=== PATIENT | female | born 1960 | race Caucasian/White ===

== ENCOUNTER 2021-05-29 20:31 | Emergency (ER) | payer OTHER ==
--- OUTSIDE RECORDS SUMMARY | 2021-05-29 20:36 | XMS REPORT | Continuity of Care Document ---
:1960 Author Organization [facility] t Address [address] [place] [address] Care Team Providers Name Role Phone Pcp, Does Not Have A Primary Care Physician Nurse, Db Urgent Care Attending Clinician Unavailable Maritza PANIAGUA Attending Clinician MARITZA Attending Clinician Unavailable Doctor Unassigned, Name Attending Clinician Unavailable Ayo FONSECA Attending Clinician Chelita Thakur MD Attending Clinician Francesco FONSECA Attending Clinician Jacques Corea MD Attending Clinician Felipe FONSECA, Vero Hall Attending Clinician [phone] Provider Attending Clinician Unavailable Tran_A Attending Clinician Unavailable FIDELINA RIVERA Attending Clinician Unavailable STEPAN Attending Clinician Unavailable MEGAN Admitting Clinician Unavailable Tran_A Admitting Clinician Unavailable ALMA MIXON Admitting Clinician Unavailable ZAK Admitting Clinician Unavailable STEPAN Admitting Clinician Unavailable Payers Payer Name Policy Type Policy Number Effective Date Expiration Date S ource Problems Condition Condition Condition Status Onset Resolution Last Treating Co mments Source Name Details Category Date Date Treatment Clinician Date Pneumonia Pneumonia Disease Active 2020-02 Met [facility]odi of left of left 2-14 st lower lobe lower lobe 00:00: Ho spita due to due to 00 l infectious infectious organism organism Suspected Suspected Disease Active 2020-02 Met hodi COVID-19 COVID-[address] 2-[address] virus virus 00:00: Hospita infection infection 00 l Close Close Disease Active 2020-02 Methodi exposure exposure 2-14 st to to 00:00: Hospita COVID-19 COVID-19 00 l virus virus Diarrhea Diarrhea Disease Active 2020-02 Metho di 2-14 st 00:00: Hospita 00 l Dehydratio Dehydratio Disease Active 2020-02 M ethodi n n 2 st 00:00: Hospita 00 l TIA TIA Disease Active Methodi (transient (transient 03-04 st ischemic ischemic 00:00: Hospit a attack) attack) 00 l Hypertensi Hypertensi Disease Active M ethodi on on st Hospita l CHF CHF Disease Active Methodi (congestiv (congestiv st e heart e heart Hospita failure) failure) l Allergies, Adverse Reactions, Alerts Allergy Allergy Status Severity Reaction(s) Onset Inactive Treating Comm ents Source Name Type Date Date Clinician Penicill DA Active U 2019-02 [facility] [place] 00:00: Health 00 are [place] iodine DA Active U 2019-02 [facility] [place] 00:00: Health 00 are [place] Penicill DA Active U UNKNOWN 2019-02 [facility] [place] 00:00: Health 00 are [place] iodine DA Active U UNKNOWN 2019-02 [facility] [place] 00:00: Health 00 are [place] Iodine Propensi Active Methodi ty to 10-27 adverse 00:00: Hospita reaction 00 l s to drug Penicill Propensi Active Method i ins ty to 10-27 adverse 00:00: Hospita reaction 00 l s to drug Sulfa Propensi Active Methodi (Sulfona ty to 10-27 st mide adverse 00:00: Hospita Antibiot reaction 00 l ics) s to drug Tomato Drug Active Hives Univers Allergy 04-01 ity of 00:00: [address] TOMATO DRUG Active Anaphylaxis Unive rs INGREDI 2-20 ity of 00:00: [place] [facility] Sulfa Propensi Active Anaphylaxis 2017-0 Uni vers (Sulfona ty to 2-26 ity of mide adverse 00:00: [place] Antibiot reaction 00 Medica l ics) s Branch DYE DRUG Active Anaphylaxis 2017-0 Unive rs INGREDI 2-26 ity of 00:00: [place] 00 [facility] PENICILL DRUG Active Anaphylaxis 2017- Uni vers IN INGREDI 2-26 ity of 00:00: [place] 00 [facility] SULFA Drug Active Anaphylaxis 2018-0 Unive rs (SULFONA Class 2-26 ity of MIDE 00:00: [place] ANTIBIOT 00 Medical ICS) Branch Dye Propensi Active Anaphylaxis 2018- CAT SCAN U nivers ty to 2- DYE ity of adverse 00:00: [place] reaction 00 Medical s Branch Penicill Propensi Active Anaphylaxis 2018-0 U nivers in ty to 2 ity of adverse 00:00: [place] reaction 00 Medical s Branch Iodine Propensi Active Anaphylaxis 2017- Met hodi And ty to st Iodide adverse 00:00: Hospita Containi reaction 00 l ng s to Products drug Family History Family Member Diagnosis Comments Start Date Stop Date Source Natural mother Colon cancer [facility] Natural father [facility] Social History Social Habit Start Date Stop Date Quantity Comments Source Exposure to Not sure University SARS-CoV-2 (event) [facility] History of tobacco Cigarette Smoker [facility] use Hospital Alcohol intake 2018-10-28 2018-10-28 Current [facility] 00:00:00 00:00:00 non-drinker of Hospital alcohol (finding) Cigarettes smoked 2017-03-04 2017-03-[address] current (pack per 00:00:00 00:00:00 Hospita l day) - Reported Tobacco use and 2017-03-04 2017-03-04 Smokeless [facility] exposure 00:00:00 00:00:00 tobacco non-user Hospital Tobacco Comment 2017-03-04 2017-03-04 smokes off and Metho dist 00:00:00 00:00:00 on Hospital Sex Assigned At [birth year] Universit y of 00:00:00 00:00:00 [facility] Smoking Status Start Date Stop Date Source Unknown if ever smoked Universit y of [facility] Occasional tobacco smoker 2017-03-04 00:00:00 [facility] Medications Ordered Filled Start Stop Current Ordering Indication Dosage Frequency Signature Comments Components Source Medication Medication Date Date Medication? Clinician (SIG) Name Name albuterol 2020-02- No 2{puff} Q6H Inhale 2 Methodi (PROAIR 2-20 01-[address] HFA) 90 00:00: 05:59 every 6 Hospit a mcg/actuati 00 :00 (six) l on inhaler hours as needed for shortness of breath for up to 30 days. methylPREDN 2020-02 No follow Met hodi ISolone 2-20 12-[address] (Medrol, 00:00: 05:59 directions Pierre Sarkar,) 4 mg 00 :00 l tablet ALPRAZolam 2018-0 Yes 2mg Q.5D Take 2 mg Me thodi (XANAX) 2 9-[address] MG tablet 00:00: (two) Hospita 00 times a l day. tiZANidine 2019-0 Yes 4mg [id number] Take 4 mg Methodi (ZANAFLEX) 9-09 [id number] by mouth 3 [address] 4 MG tablet 00:00: 3D (three) Hos sofiya 00 times a l day. traMADol 2019-0 Yes 50mg Q.[id number] Take 50 mg Methodi (ULTRAM) 50 8-26 [id number] by mouth 3 [address] mg tablet 00:00: 3D (three) Hospi ta 00 times a l day as needed. dextroamphe 2019-0 Yes 1{tbl} QD Take 1 Me thodi tamine-amph 8-[address] etamine 00:00: mouth Hospita (ADDERALL) 00 daily. l 30 mg tablet LATUDA 80 2019-0 Yes 80mg QD Take 80 mg Me thodi mg tablet 8-[address] 00:00: daily. Hospita 00 l methylPREDN 2019-0 Yes [id number] Take by Univers ISolone 4 2-20 mouth ity of mg tablets 00:00: SEE-INSTRU [place] 00 CTIONS. Medical follow Branch package directions methylPREDN 2019-0 Yes [id number] Take by Univers ISolone 4 2-20 mouth ity of mg tablets 00:00: SEE-INSTRU [place] 00 CTIONS. Medical follow Branch package directions lisinopril 2017- Yes 10mg QD Take 1 Metho di (PRINIVIL,Z 1-27 tablet (10 st ESTRIL) 10 00:00: mg total) Ho spita mg tablet 00 by mouth l daily for 30 days. Immunizations Ordered Filled Immunization Date Status Comments [facility] e Immunization Name Name Remdesivir 2021-01-28 Completed [facility] 00:00:00 [facility] Remdesivir 2021-01-27 Completed [facility] 00:00:00 [facility] Remdesivir 2021-01-26 Completed [facility] 00:00:00 [facility] Remdesivir 2021-01-25 Completed [facility] 00:00:00 [facility] Remdesivir 2021-01-24 Completed [facility] 00:00:00 [facility] Tdap 2018-06-26 Completed [facility] 00:00:00 [facility] Influenza Virus 2017-03-07 Completed Universit y of Vaccine 00:00:00 [facility] Pneumococcal 13 2017-03-07 Completed Universit y of Conjugate, PCV13 00:00:00 [facility] dical (Prevnar 13) Normal Influenza Virus 2017-03-07 Completed Universit y of Vaccine 00:00:00 [facility] Pneumococcal 13 2017-03-07 Completed Universit y of Conjugate, PCV13 00:00:00 [facility] dical (Prevnar 13) Normal FLUCELVAX QUAD PF 2017-03-[address] 00:00:00 [facility] Pneumococcal 2017-03-07 Completed [facility] Conjugate 13-Valent 00:00:00 Hospi lora Vital Signs Vital Name Observation Time Observation Value Comments Source Systolic blood 2021-05-30 00:56:00 134 mm[Hg] Univer sity of pressure [facility] Diastolic blood 2021-05-30 00:56:00 84 mm[Hg] Unive [facility] Heart rate 2021-05-30 00:56:00 67 /min General acute hospital Body temperature 2021-05-30 00:56:00 36.22 Faith [facility] Respiratory rate 2021-05-30 00:56:00 16 /min [facility] Body height 2021-05-30 00:56:00 167.6 cm General acute hospital Body weight 2021-05-30 00:56:00 144.244 kg General acute hospital BMI 2021-05-30 00:56:00 51.33 kg/m2 General acute hospital Oxygen saturation in 2021-05-30 00:56:00 98 /min [facility] Arterial blood by [facility] Pulse oximetry Branch Systolic blood 2021-01-29 17:22:59 134 mm[Hg] [facility] pressure Diastolic blood 2021-01-29 17:22:59 77 mm[Hg] [facility] pressure Heart rate 2021-01-29 17:22:59 72 /min [facility] Body temperature 2021-01-29 17:22:59 36.5 Faith [facility] Respiratory rate 2021-01-29 17:22:59 18 /min [facility] Oxygen saturation in 2021-01-29 17:22:59 93 /min [facility] Arterial blood by Pulse oximetry Body height 2021-01-23 15:18:00 167.6 cm [facility] Body weight 2021-01-23 15:18:00 147.419 kg [facility] BMI 2021-01-23 15:18:00 52.46 kg/m2 [facility] Procedures Procedure Date / Time Performing Clinician Source Performed DURABLE MEDICAL EQUIPMENT 2021-01-29 17:25:38 Allison Wang [facility] Abdelmoneim E.S BASIC METABOLIC PANEL 2021-01-29 11:39:00 Allison Wang [facility] Abdelmoneim E.S CBC WITH PLATELET AND 2021-01-29 11:39:00 Allison Wang [facility] DIFFERENTIAL Abdelmoneim E.S MAGNESIUM LEVEL 2021-01-29 11:39:00 Allison Wang spital Abdelmoneim E.S PHOSPHORUS LEVEL 2021-01-29 11:39:00 Allison Wang ospital Abdelmoneim E.S ESTIMATED GFR 2021-01-29 11:39:00 Allison Wang spital Abdelmoneim E.S MANUAL DIFFERENTIAL 2021-01-29 [facility]:39[facility] C-REACTIVE PROTEIN 2021-01-27 15:11:00 Karl Arellano [facility] XR CHEST 1 VW PORTABLE 2021-01-26 13:30:45 Francesco [facility] CBC HEMOGRAM 2021-01-26 11:19:00 Armin Maya spital COMPREHENSIVE METABOLIC 2021-01-26 11:19:00 Francesco [facility] PANEL MAGNESIUM LEVEL 2021-01-26 11:19:00 Hernan Mayahan [facility] spital ESTIMATED GFR 2021-01-26 11:19:00 Francesco [facility] Ho spital C-REACTIVE PROTEIN 2021-01-26 11:19:00 Eileen [facility] US DUPLEX VENOUS LOWER 2021-01-26 03:53:00 Francesco [facility] EXTREMITY BILATERAL COVID-19 ANTI-SPIKE IGG 2021-01-25 11:47:00 Gorge Arteaga [facility] ANTIBODY TITER Donnie C-REACTIVE PROTEIN 2021-01-25 11:47:00 Eileen [facility] COVID-19 SEROLOGY PATIENT 2021-01-25 11:47:00 Gorge Arteaga [facility] SURVEILLANCE Donnie CBC HEMOGRAM 2021-01-25 11:47:00 Armin Maya spital COMPREHENSIVE METABOLIC 2021-01-25 11:47:00 Francesco [facility] PANEL MAGNESIUM LEVEL 2021-01-25 11:47:00 Armin Maya spital ESTIMATED GFR 2021-01-25 11:47:00 Hernan Mayahan [facility] spital CT CHEST WO CONTRAST 2021-01-24 22:52:45 Karl Arellano [facility] D-DIMER 2021-01-24 19:54:00 [facility] INTERLE[facility] 6 2021-01-24 15:36:00 Armin Maya spital PROCALCITONIN 2021-01-24 15:36:00 Armin Maya spital CREATINE KINASE, TOTAL 2021-01-24 15:36:00 [facility] THYROID STIMULATING 2021-01-24 15:36:00 [facility] HORMONE C-REACTIVE PROTEIN 2021-01-24 15:36:00 [facility] HEMOGLOBIN A1C 2021-01-24 15:36:00 [facility] Ho spital HC COMPLETE BLD COUNT 2021-01-24 12:34:00 [facility] W/AUTO DIFF [place] BASIC METABOLIC PANEL 2021-01-24 12:34:00 [facility] ESTIMATED GFR 2021-01-24 12:34:00 [facility] TROPONIN T 2021-01-23 21:46:00 [facility] TROPONIN T 2021-01-23 19:35:00 [facility] LACTIC ACID LEVEL, SEPSIS 2021-01-23 16:50:00 [facility] Xochitl [facility] - NOW AND REPEAT 2X EVERY 3 HOURS BLOOD CULTURE, AEROBIC & 2021-01-23 16:49:00 [facility] Xochitl [facility] ANAEROBIC XR CHEST 1 VW PORTABLE 2021-01-23 15:52:57 [facility] COMPREHENSIVE METABOLIC 2021-01-23 15:50:00 [facility] PANEL HC COMPLETE BLD COUNT 2021-01-23 15:50:00 [facility] W/AUTO DIFF TROPONIN T 2021-01-23 15:50:00 [facility] B NATRIURETIC PEPTIDE 2021-01-23 15:50:00 [facility] ESTIMATED GFR 2021-01-23 15:50:00 Xochitl Rollins Ho spital RESPIRATORY PATHOGEN 2021-01-23 15:47:00 [facility] PANEL WITH COVID-19 RT-PCR ECG 12-LEAD 2021-01-23 15:27:55 Xochitl Rollins Ho spital ECG ED PRELIMINARY 2021-01-23 15:21:22 [facility] INTERPRETATION Plan of Care Planned Activity Planned Date Details Comments Source Future Scheduled 2021-03-22 COVID-19 VACCINE (1) Met [facility] Test 11:44:08 [code = COVID-19 VACCINE (1)] Future Scheduled 2021-03-22 Hepatitis C screening [facility] Test 11:44:08 (procedure) [code = 171250328] Future Scheduled 2021-03-22 Screening for [facility] Test 11:44:08 malignant neoplasm of cervix (procedure) [code = 708257581] Future Scheduled 2021-03-22 BREAST CANCER [facility] Test 11:44:08 SCREENING [code = BREAST CANCER SCREENING] Future Scheduled 2021-03-22 COLONOSCOPY SCREENING [facility] Test 11:44:08 [code = COLONOSCOPY SCREENING] Future Scheduled 2021-03-22 SHINGLES VACCINES Method [facility] Test 11:44:08 (#1) [code = SHINGLES VACCINES (#1)] Future Scheduled 2021-03-22 INFLUENZA VACCINE Method [facility] Test 11:44:08 [code = INFLUENZA VACCINE] Procedure 2021-05-30 ASSIGNMENT OF [facility] 00:49:34 [facility] Encounters Start End Encounter Admission Attending Care Care Encounter Source Date/Time Date/Time Type Type Clinicians Facility Department ID 2019-11-27 Inpatient HCATB ELISSA [id number] [facility] 09:11:00 [id number] [facility] are [place] 2021-05-29 2021-05-29 Nurse Nurse, [facility] [id number] Univers 20:30:00 20:50:00 [facility] [id number] [facility] [id number] Matthieu as MOON?BLEA [id number] [address] MEDICAL OFFICE BUILDING 2021-05-29 2021-05-29 Outpatient R [facility] [id number] Univers 20:30:00 20:30:00 [id number] [facility] 2021-05-29 2021-05-29 [facility] [id number] Univers 20:30:00 20:30:00 CAROLYN [facility] 2021-05-29 2021-05-29 Orders Doctor SABINE [id number] Univers 00:00:00 00:00:00 Only Unassigned, [place] [id number] [facility] 4.2.7.2.686 Matthieu as [id number] [place] [id number] Branch 2021-01-23 2021-01-29 Hospital Xochitl Rollins [id number] Methodi 09:20:00 16:10:00 Encounter Gaagn Thakur Amod [id number] Armin Maya 3.430.2.7 Hospita NahomyOmar Jacques .[id number] l Allison Wang8 2021-01-24 2021-01-24 Documentat Provider, 1.2.840.1 [id number] Methodi 00:00:00 00:00:00 ion Unknown [id number] 3.430.2.7 Hospit a .3.622517 l .8 2020-04-14 2020-04-14 Outpatient Tran_A VFP VFP [id number] [facility] 12:28:00 12:28:00 [id number] Family Practic e 2019-06-12 2019-06-15 Inpatient [facility] 19:51:00 18:00:00 [facility] 2018-06-29 2018-06-29 Emergency E [facility]NE MHNE 7502 [facility] 17:37:00 17:37:00 2018-06-22 2018-06-22 Emergency E MHNE MHNE 7501 NE 20:55:00 20:55:00 Results Test Description Test Time Test Comments Results Result Comments Source Home O2 Setup 2021-02-06 21:37:18 Test Item Value Reference Range Interpretation Comme nts SUPPLIER NAME (test code = 6415) [facility] SUPPLIER PHONE (test code = 6416) [phone] ORDER STATUS (test code = 6417) Delivery Successful DELIVERY NOTE (test code = 6419) REQUESTED DELIVEY DATE (test code = 6420) 01/29/2021 ITEM DESCRIPTION (test code = 6423) No Conserving Device Qty: 1 ACTUAL DELIVERY DATE (test code = 6422) 01/29/2021 [facility] [id number] 03:36:48 Test Item Value Reference Range Interpretation Comments Ventricular rate (test code = 253) Atrial rate (test code = 255) MS interval (test code = 266) QRSD interval (test code = 260) QT interval (test code = 264) QTC interval (test code = 265) P axis 1 (test code = 267) QRS axis 1 (test code = 268) T wave axis (test code = 270) EKG impression (test Normal sinus code = 273) rhythm-Nonspecific T wave abnormality-Abnormal ECG-In automated comparison with ECG of 03-MAR-2017 12:07,-No significant change was found- [facility] [id number] 01:32:00 Test Item Value Reference Range Interpretation Comments COVID 19 INHOUSE AG NEGATIVE NEGATIVE NEGATIV E RESULTS SHOULD (test code = BE TREATED P RESUMPTIVE [id number]) ANDCONFIRMED WT IH A MOLECULAR ASSAY , IF NECESSARY FOR PATIENTMANAGEME NT. NEGATIVE RESULT S DO NOT RULE OUT COVID- 19 ANDSHOULD NOT B E USED THE SOLE BASIS FOR TREATMENT ORPAT IENT MANAGEMENT DECI SIONS, INCLUDING INFEC TION CONTROLDECISION S. NEGATIVE RESULT S SHOULD BE CONSIDERED I N THECONTEXT OF A PATIENT'S RECENT EXPOSURE S, HISTORY AND THEPRESENCE OF CLINICAL SIGNS AND SYMPTOMS CONSIS TENT WITHCOVID-19. - CT CHEST W/O [id number] 11:21:00 [facility] : 1960 Sex: FPatient Name: MATEO NUNEZ Unit No: [id number] EXAMS: CPT: [id number] CT CHEST W/O CONTRAST [address]32 CT CHEST, ABDOMEN AND PELVIS WITHOUT CONTRAST: INDICATIONS:Possible aspiration. Abdominal pain. COMPARISON: None available Axial CT imaging of the chest,abdomen and pelvis without IV contrast. Coronal and sagittal reformats recons tructed. Sensitivity of the exam is limited without contrast. Oral contrast One or more of the following dose reduction techniques were used: Automated exposure control, adjustment of the mA and or Kv according to patient size, and / or utilization of iterative reconstruction technique. Total DPL: 1637.17mGy*cm FINDINGS: The visualized central airway is unremarkable. No hilar or mediastinal lymphadenopathy. Cardiac size is normal. No coronary calcifications. No pericardial effusions. Some dependent ate lectasis. No pleural effusion, masses, pneumothorax or consolidation. The thoracic aortais of normal caliber. Below the hemidiaphragms: The unenhanced liver, pancreas, spleen, adrenals are unremarkable. Ossified granuloma in the spleen. Gallbladderis surgically absent. Kidneys are unremarkable. Distal ureter and bladder are unremarkable. No small or large bowel obstruction. A normal appendix. No enlarged retroperitoneal node. The abdominal aorta is normal caliber. Remaining pelvic structures negative. No free fluid or free air. Multilevel degenerative the thoracolumbar spine. IMPRESSION: No acute abnormality within the chest, abdomen or pelvis at 1121 Reported and signed by: Steven Sanchez MD Name: MATEO NUNEZ [facility] [place] Phys: [id number] - Gerardo Fleming MD [address] [facility] : 1960 Age: 59 Sex: F [place] Loc: T.ERS Exam Date: 11/27/2019 Status: REG ER PH: FAX: PAGE 1 Signed Report (CONTINUED) Patient Name: MATEO NUNEZ Unit No: [id number] EXAMS: CPT: [id number] CT CHEST W/O CONTRAST [id number] <Continued> CC: Gerardo Fleming MD Technologist:Sabine Radford CTDI: 23.95 DLP: 1637.17Trscr Dt/Tm: 11/27/2019 (1121) by:[email or web address] Orig Print D/T: S: 11/27/2019 (1124) BATCH NO: N/A Name: MATEO NUNEZ [facility] [place] Phys: Gerardo Gonzalez MD [address] [facility] 1960 Age: 59 Sex: F Dirk Monae Loc: T.ERS Exam Date: 11/27/2019 Status: REG ER PH: FAX: PAGE 2 Signed Report- CT ABD PELVIS W/O [id number] 11:21:00 [facility] : 1960 Sex: FPatient Name: MATEO NUNEZ Unit No: [id number] EXAMS: CPT: [id number] CT ABD PELVIS W/O CONT 65743 CT CHEST, ABDOMEN AND PELVIS WITHOUT CONTRAST: INDICATIONS:Possible aspiration. Abdominal pain. COMPARISON: None available Axial CT imaging of the chest,abdomen and pelvis without IV contrast. Coronal and sagittal reformats recons tructed. Sensitivity of the exam is limited without contrast. Oral contrast One or more of the following dose reduction techniques were used: Automated exposure control, adjustment of the mA and or Kv according to patient size, and / or utilization of iterative reconstruction technique. Total DPL: 1637.17mGy*cm FINDINGS: The visualized central airway is unremarkable. No hilar or mediastinal lymphadenopathy. Cardiac size is normal. No coronary calcifications. No pericardial effusions. Some dependent ate lectasis. No pleural effusion, masses, pneumothorax or consolidation. The thoracic aortais of normal caliber. Below the hemidiaphragms: The unenhanced liver, pancreas, spleen, adrenals are unremarkable. Ossified granuloma in the spleen. Gallbladderis surgically absent. Kidneys are unremarkable. Distal ureter and bladder are unremarkable. No small or large bowel obstruction. A normal appendix. No enlarged retroperitoneal node. The abdominal aorta is normal caliber. Remaining pelvic structures negative. No free fluid or free air. Multilevel degenerative the thoracolumbar spine. IMPRESSION: No acute abnormality within the chest, abdomen or pelvis at 1121 Reported and signed by: Steven Sanchez MD Name: MATEO NUNEZ [place] Phys: Gerardo Gonzalez MD [address] [facility] : 1960 Age: 59 [facility]: [facility] [id number] Loc: T.ERS Exam Date: 11/27/2019 Status: REG ER PH: FAX: PAGE 1 Signed Report (CONTINUED) Patient Name: MATEO NUNEZ Unit No: [id number] EXAMS: CPT: [id number] CT ABD PELVIS W/O CONT 58147 <Continued> CC: Gerardo Fleming MD Technologist:Sabine Radford CTDI: 23.95 DLP: 1637.17Trscr Dt/Tm: 11/27/2019 (1121) by:[email or web address] Orig Print D/T: S: 11/27/2019 (1124) BATCH NO: N/A Name: MATEO NUNEZ [facility] [place] Phys: KIMULacieGerardo Gonzalez MD [address] [facility] : 1960 Age: 59 Sex: F Dirk Monae Loc: T.ERS Exam Date: 11/27/2019 Status: REG ER PH: FAX: PAGE 2 Signed Report- CT C-SPINE W/O [id number] 11:08:00 [facility] : 1960 Sex: FPatient Name: MATEO NUNEZ Unit No: [id number] EXAMS: CPT: [id number] CT C-SPINE W/O CONT 42742 CT CERVICAL SPINE: HISTORY: vomiting fall COMPARISON: None available. FINDINGS: No acute fracture or dislocation is seen. There is fusion of the left see 2-3 facet joint. The overall alignment of the cervical spine is normal. Changes of cervical spondylosis are present at C4-5 and C5-6. Facet arthrosis is noted at C3-4, C5-6, C6-7 and C7-T1. Mild uncovertebral osteoarthritis is present at C5-6. No lytic or blastic lesion is noted. Without contrast in the thecal sac a CT scan of the cervical spine is limited for the diagnosis of disc disease. IMPRESSION: No acute traumatic abnormality. Mild cervical spondylosis at C4-5 and C5-6. Facet arthrosis at C3-4 through C7-T1 and uncovertebral arthrosis at C5-6. DLP: 506.9 mGy*cm One or more of the following dose reduction techniques were used: Automated exposure control, adjustment of the SMA and/or KV according to the patient size, and/or utilization of degenerative reconstruction technique. at 1108 Reported and signed by: Gorge Shepard MD CC: Gerardo Fleming MD Technologist: Sabine Radford CTDI: 20.58 DLP: 1818.8 Trscr Dt/Tm: 11/27/2019 (1108) by:[email or web address] Orig Print D/T: S: 11/27/2019 (1111) BATCH NO: N/A Name: MATEO NUNEZ [facility] [place] Phys: [id number] - Gerardo Fleming MD [address] : 1960 Age: 59 Sex: F [place] Loc: T.ERS Exam Date: 11/27/2019 Status: REG ER PH: FAX: PAGE 1 Signed Report- CT HEAD/BRAIN W/O [id number] 11:02:00[facility] : 1960 Sex: FPatient Name: MATEO NUNEZ Unit No: [id number] EXAMS: CPT: [id number] CT HEAD/BRAIN W/O CONT [id number] CT SCAN OF THE HEAD WITHOUT CONTRAST: HISTORY: vomiting COMPARISON: None available. FINDINGS: The ventricles are normal in size and shape. No evidence of an intra- axial or extra-axial mass is seen and no shift of the midline structures is present. No abnormal focus of increased or decreased attenuation is present in the lowe or white matter, brain stem, or posterior fossa. No intra-axial or extra-axialmass, hemorrhage or other fluid collection is noted. The visualized paranasal sinuses and mastoid air cells are clear. IMPRESSION: Normal CT head without contrast. DLP: 805.01 mGy*cm One or more of the following dose reductiontechniques were used: Automated exposure control, adjustment of the SMA and/or KV according to the patient size, and/or utilization of iterative reconstruction technique. at 1102 Reported and signed by: Gorge Shepard MD CC: Gerardo Fleming MD Technolog ist: Sabine Radford CTDI: 40.74 DLP: 1818.8 TrscrDt/Tm: 11/27/2019 (1102) by:[email or web address] Orig Print D/T: S: 11/27/2019 (1105) BATCH NO: N/A Name: MATEO NUNEZ [facility] [place] Phys: [id number] - Gerardo [facility] [address] [facility] 1960 Age: 59 Sex: F [place] Loc: T.ERS Exam Date: 11/27/2019 Status: REG ER PH: FAX: PAGE 1 Signed ReportBASIC METABOLIC [id number] 10:51:00 Test Item Value Reference Range Interpretation Comments SODIUM (test code 140 mmol/L 136-145 N = NA) POTASSIUM (test 4.0 MMOL/L 3.6-5.2 N code = K) CHLORIDE (test 109 MMOL/L 98-110 N code = CL) CARBON DIOXIDE 24 mEq/L 24-32 N (test code = CO2) GLUCOSE (test code 123 mg/dL 70-110 H = GLU) BLOOD UREA 15 mg/dL 7-18 N NITROGEN (test code = BUN) GLOMERULAR >=60 max >60 The estimated FILTRATION RATE estimate glomerular (test code = GFR) filtration rate is computed usingpatient ra ce, age (>18), sex, and serum creatinin e. If anyof the neede d data elements a re missing the Laboratory kvng ot compute an estimation of t he glomerular filtration rate . CREATININE (test 0.53 mg/dL 0.60-1.30 L code = CREAT) CALCIUM (test code 8.9 mg/dL 8.6-10.4 N = CA) COMPREHENSIVE METABOLIC [id number] 10:51:00 Test Item Value Reference Range Interpretation Comments TOTAL PROTEIN (test 6.8 g/dL 6.0-8.3 N code = PROT) ALBUMIN (test code = 3.8 g/dL 3.2-5.5 N ALB) BILIRUBIN TOTAL 0.5 mg/dL 0.2-1.0 N K-qavern-u-b enzoquinone (test code = BILT) imine (NA PQI), a metabolite ofacetaminophen (paracetamol), may generate errone ously lowresults in s amples for patients th at have taken toxic dos esof acetaminophen (paracetamol). SGOT/AST (test code 17 UNITS/L 10-42 N = AST) SGPT/ALT (test code 15 UNITS/L 10-40 N = ALT) ALKALINE PHOSPHATASE 56 UNITS/L 34-104 N (test code = ALKP) LIVER FUNCTION [id number] 10:51:00 Test Item Value Reference Range Interpretation Comments BILIRUBIN DIRECT 0.1 mg/dL 0.0-0.2 N N-acetyl-p- benzoquinone (test code = BILD) imine (NA PQI), a metabolite ofacetaminophen (paracetamol), may generate errone ously lowresults in s amples for patients that h ave taken toxic dosesof acetaminophen (paracetamol). BILIRUBIN INDIRECT 0.4 mg/dL (test code = BILIND) [id number] 10:51:00 Test Item Value Reference Range Interpretation Comments MAGNESIUM (test code = MAG) 2.2 mg/dL 1.7-2.8 N [id number] 10:51:00 Test Item Value Reference Range Interpretation Comments ACETAMINOPHEN (test code = ACET) < 10.0 ug/mL 10.0-25.0 L [id number] 10:51:00 Test Item Value Reference Range Interpretation Comments SALICYLATE (test code = DU) < 4.0 mg/dL 0.0-30.0 N [id number] 10:51:00 Test Item Value Reference Range Interpretation Comments ALCOHOL (test code = < 5.0 mg/dl 0.0-80.0 N ALC) ~~~~~~~~~~~~~~~ ~~~~~~~ ~~~~~~~~~~~~~~~ ~~~~~~~ ~~~~~~ RESU LTS ARE TO BE USED FOR MEDICAL PURPOSES ONLY.F OR LEGAL PURPOSES THE SPECIMEN MUST B E COLLECTED BY A CHAINOF CUSTODY. LEGAL TESTING IS NOT PERFORME D BY THIS FACILITY. ~~~~~~~~~~~~~~~ ~~~~~~~ ~~~~~~~~~~~~~~~ ~~~~~~~ ~~~~~~ [id number] 10:43:00 Test Item Value Reference Range Interpretation Comments LITHIUM (test code = LITH) 0.2 mmol/L 0.5-1.3 L PROTHROMBIN [id number] 10:40:00 Test Item Value Reference Range Interpretation Comments PROTHROMBIN TIME 12.4 SECONDS 9.5-12.9 N PATIENT (test code = PTP) INTERNATIONAL NORMAL 1.0 0.85-1.15 N The INR is to be used RATIO (test code = only for monitoring INR) ORAL ANTICOAGULANTTH ERAPY. Indicati on INR Value1. Prophylaxis/yolanda atment of: Venous Thrombosis, Pul monary Embolism 2.0 - 3.02. Preventi on of systemic emboli sm from: Tiss ue heart valves 2.0 - 3.0 Acute myocardial infa rction (to present systemic emboli sm)* 2.0 - 3.0 Valvular heart disease 2.0 - 3.0 Atrial fibrillation 2.0 - 3.03. Used Building [employer] Yard Worker al prosthetic valv es (high risk) 2.5 - 3.5 * If oral anticoagulant t herapy is elected to preventrecurren t myocardial infa rction, an INR of 2.5-3 .5 isrecommended, consistent with Food and Drug Administrationr ecommen dations. THROMBOPLASTIN TIME [id number] 10:40:00 Test Item Value Reference Range Interpretation Comments THROMBOPLASTIN TIME PARTIAL (test 32 SECONDS 25.1-36.5 N code = PTT) BASIC METABOLIC [id number] 10:37:00 Test Item Value Reference Range Interpretation Comments SODIUM (test code = NA) 140 mmol/L 136-145 N POTASSIUM (test code = K) 4.0 MMOL/L 3.6-5.2 N CHLORIDE (test code = CL) 109 MMOL/L 98-110 N CARBON DIOXIDE (test code = CO2) 24 mEq/L 24-32 N GLUCOSE (test code = GLU) 123 mg/dL 70-110 H BLOOD UREA NITROGEN (test code = mg/dL 7-18 BUN) GLOMERULAR FILTRATION RATE (test >60 code = GFR) CREATININE (test code = CREAT) mg/dL 0.60-1.30 CALCIUM (test code = CA) 8.9 mg/dL 8.6-10.4 N COMPREHENSIVE METABOLIC [id number] 10:37:00 Test Item Value Reference Range Interpretation Comments TOTAL PROTEIN (test code = PROT) g/dL 6.0-8.3 ALBUMIN (test code = ALB) g/dL 3.2-5.5 BILIRUBIN TOTAL (test code = BILT) mg/dL 0.2-1.0 SGOT/AST (test code = AST) UNITS/L 10-42 SGPT/ALT (test code = ALT) UNITS/L 10-40 ALKALINE PHOSPHATASE (test code = UNITS/L 34-104 ALKP) LIVER FUNCTION [id number] 10:37:00 Test Item Value Reference Range Interpretation Comments BILIRUBIN DIRECT (test code = BILD) mg/dL 0.0-0.2 [id number] 10:37:00 Test Item Value Reference Range Interpretation Comments MAGNESIUM (test code = MAG) mg/dL 1.7-2.8 [id number] 10:37:00 Test Item Value Reference Range Interpretation Comments ACETAMINOPHEN (test code = ACET) ug/mL 10.0-25.0 [id number] 10:37:00 Test Item Value Reference Range Interpretation Comments SALICYLATE (test code = DU) mg/dL 0.0-30.0 [id number] 10:37:00 Test Item Value Reference Range Interpretation Comments ALCOHOL (test code = ALC) mg/dl 0.0-80.0 BASIC METABOLIC [id number] 10:36:00 Test Item Value Reference Range Interpretation Comments SODIUM (test code = NA) mmol/L 136-145 POTASSIUM (test code = K) 4.0 MMOL/L 3.6-5.2 N CHLORIDE (test code = CL) MMOL/L 98-110 CARBON DIOXIDE (test code = CO2) mEq/L 24-32 GLUCOSE (test code = GLU) mg/dL 70-110 BLOOD UREA NITROGEN (test code = mg/dL 7-18 BUN) GLOMERULAR FILTRATION RATE (test >60 code = GFR) CREATININE (test code = CREAT) mg/dL 0.60-1.30 CALCIUM (test code = CA) mg/dL 8.6-10.4 COMPREHENSIVE METABOLIC [id number] 10:36:00 Test Item Value Reference Range Interpretation Comments TOTAL PROTEIN (test code = PROT) g/dL 6.0-8.3 ALBUMIN (test code = ALB) g/dL 3.2-5.5 BILIRUBIN TOTAL (test code = BILT) mg/dL 0.2-1.0 SGOT/AST (test code = AST) UNITS/L 10-42 SGPT/ALT (test code = ALT) UNITS/L 10-40 ALKALINE PHOSPHATASE (test code = UNITS/L 34-104 ALKP) LIVER FUNCTION [id number] 10:36:00 Test Item Value Reference Range Interpretation Comments BILIRUBIN DIRECT (test code = BILD) mg/dL 0.0-0.2 [id number] 10:36:00 Test Item Value Reference Range Interpretation Comments MAGNESIUM (test code = MAG) mg/dL 1.7-2.8 [id number] 10:36:00 Test Item Value Reference Range Interpretation Comments ACETAMINOPHEN (test code = ACET) ug/mL 10.0-25.0 [id number] 10:36:00 Test Item Value Reference Range Interpretation Comments SALICYLATE (test code = DU) mg/dL 0.0-30.0 [id number] 10:36:00 Test Item Value Reference Range Interpretation Comments ALCOHOL (test code = ALC) mg/dl 0.0-80.0 CBC W/AUTO [id number] 10:33:00 Test Item Value Reference Range Interpretation Comments WHITE BLOOD CELL (test code = WBC) 8.47 K/mm3 5.0-12.0 N RED BLOOD CELL (test code = RBC) 4.62 M/mm3 4.20-5.40 N HEMOGLOBIN (test code = HGB) 13.6 G/DL 12.0-16.0 N HEMATOCRIT (test code = HCT) 41.7 % 34.9-44.5 N MEAN CELL VOLUME (test code = MCV) 90 fL 81-99 N MEAN CELL HGB (test code = MCH) 29.4 PGM 27-31 N MEAN CELL HGB CONCENTRATION (test 32.6 G/DL 33-37 L code = MCHC) RED CELL DISTRIBUTION WIDTH (test 12.9 % 11.6-16.2 N code = RDW) PLATELET COUNT (test code = PLT) 257 K/mm3 130-400 N MEAN PLATELET VOLUME (test code = 11.5 fl 7.4-10.4 H MPV) NEUTROPHIL % (test code = NT%) 82.9 % 43-65 H IMMATURE GRANULOCYTE % (test code 0.4 % 0.0-2.0 N = IG%) LYMPHOCYTE % (test code = LY%) 11.8 % 20.5-45.5 L MONOCYTE % (test code = MO%) 4.3 % 5.5-11.7 L EOSINOPHIL % (test code = EO%) 0.4 % 0.9-2.9 L BASOPHIL % (test code = BA%) 0.2 % 0.2-1.0 N NUCLEATED RBC % (test code = 0.0 % 0-1.0 N NRBC%) NEUTROPHIL # (test code = NT#) 7.03 K/mm3 2.2-4.8 H LYMPHOCYTE # (test code = LY#) 1.00 K/mm3 1.3-2.9 L MONOCYTE # (test code = MO#) 0.36 K/mm3 0.3-0.8 N EOSINOPHIL # (test code = EO#) 0.03 K/MM3 0.0-0.2 N BASOPHIL # (test code = BA#) 0.02 K/mm3 0.0-0.1 N DRUGS OF ABUSE SCREEN [id number] 10:24:00 Test Item Value Reference Range Interpretation Comments UR COCAINE (test code = COCAU) NEGATIVE NEGATIVE UR METHAMPHETAMINE (test code = NEGATIVE NEGATIVE METHAMPHU) UR CANABINOIDS (test code = CANU) NEGATIVE NEGATIVE UR AMPHETAMINE (test code = AMPHU) NEGATIVE NEGATIVE UR BARBITURATE (test code = BARBQLU) POSITIVE NEGATIVE A UR BENZODIAZEPINE (test code = NEGATIVE NEGATIVE BENZU) METHADONE (test code = METHDU) NEGATIVE NEGATIVE PROPOXYPHENE SCREEN (test code = NEGATIVE NEGATIVE PROPXSQ) UR OPIATES QUAL (test code = POSITIVE NEGATIVE A OPIAQLU) OXYCODONE (test code = OXYCOD) NEGATIVE NEGATIVE UR TRICYCLICS (test code = TRICYCU) NEGATIVE NEGATIVE UR PHENCYCLIDINE (PCP) (test code = NEGATIVE NEGATIVE PHENCU) UR BUPRENORPHINE QUAL (test code = NEGATIVE NEAGTIVE BUPRESCRT) TROPONIN I [id number] 10:23:00 Test Item Value Reference Range Interpretation Comments TROPONIN I RAPID 0.00 ng/mL 0.00-0.08 N ISTAT (test code = TROPONIN I TROPIRAP) CRITERIA0.00-0. 08 ng/mL - Negative>0.08 n g/mL - Positive The us e of serial sampling and te sting protocol is are commended practice.An simeon vated troponin level alone is often not suffi cient fordiagnosis of myocardial infarction. Tro ponin results obtaine d by different assay s may vary.Evaluation of the extent of myoca rdial damage based on increase of troponin would be valid only if similar methodology is used. UA RFLX MICR CULT IF [id number] 10:16:00 Test Item Value Reference Range Interpretation Comments UA COLOR (test code = COLU) Light-Yellow YELLOW UA APPEARANCE (test code = CLEAR CLEAR APPU) UA GLUCOSE DIPSTICK (test code NEG MG/DL NEGATIVE = DGLUU) UA BILIRUBIN DIPSTICK (test NEG NEGATIVE code = BILU) UA KETONE DIPSTICK (test code 1+ MG/DL NEGATIVE A = KETU) UA SPECIFIC GRAVITY (test code 1.016 1.000-1.030 = SGU) UA BLOOD DIPSTICK (test code = NEG NEGATIVE LINDA) UA PH DIPSTICK (test code = 5.5 4.5-8.5 TIM) UA PROTEIN DIPSTICK (test code NEG MG/DL NEGATIVE = PROU) UA UROBILINOGEN DIPSTICK (test NORMAL EU/dL <=1.0 code = URO) UA NITRITE DIPSTICK (test code NEG NEGATIVE = MINAL) UA LEUKOCYTE ESTERASE DIPSTICK NEG NEGATIVE (test code = LEUU) UA WBC (test code = WBCU) 0-3 /HPF 0-3 UA RBC (test code = RBCU) 0-3 /HPF 0-3 UA BACTERIA (test code = BACU) NONE SEEN /HPF NONE SEEN UA SQUAMOUS CELLS (test code = RARE /HPF NONE-FEW SQU) UA MUCUS (test code = MUCU) RARE /LPF NONE-FEW Indication for culture: Dysuria/FrequencySpecimen Description: BAGGED URINE UA RFLX MICR CULT IF [id number] 10:14:00 Test Item Value Reference Range Interpretation Comments UA COLOR (test code = COLU) Light-Yellow YELLOW UA APPEARANCE (test code = APPU) CLEAR CLEAR UA GLUCOSE DIPSTICK (test code = NEG MG/DL NEGATIVE DGLUU) UA BILIRUBIN DIPSTICK (test code NEG NEGATIVE = BILU) UA KETONE DIPSTICK (test code = 1+ MG/DL NEGATIVE A KETU) UA SPECIFIC GRAVITY (test code = 1.016 1.000-1.030 SGU) UA BLOOD DIPSTICK (test code = NEG NEGATIVE LINDA) UA PH DIPSTICK (test code = TIM) 5.5 4.5-8.5 UA PROTEIN DIPSTICK (test code = NEG MG/DL NEGATIVE PROU) UA UROBILINOGEN DIPSTICK (test NORMAL EU/dL <=1.0 code = URO) UA NITRITE DIPSTICK (test code = NEG NEGATIVE MINAL) UA LEUKOCYTE ESTERASE DIPSTICK NEG NEGATIVE (test code = LEUU) Indication for culture: Dysuria/FrequencySpecimen Description: BAGGED URINE CULTURE, ARLINE [id number] 08:44:00FIRST DRAW = 1 aerobic and 1 anerobic Culture LEFT HANDSpecimen: BloodCollected: 08/29/2018 16:30 Status: Final Last Updated: 09/04/2018 08:43 (1) FIRST DRAW = 1 aerobic and 1 anerobic Culture LEFT HAND Culture Result (Final) (Final) No Growth After 5 DaysCULTURE, [id number] 08:44:00To start 15mins after 1st culture SECOND DRAW = 1 aerobic and 1 anerobic Culture LEFT HANDSpecimen: BloodCollected: 08/29/2018 16:30 Status: Final Last Updated: 09/04/2018 08:43 (1) To start 15mins after 1st culture SECOND DRAW = 1 aerobic and 1anerobic Culture LEFT HAND Culture Result (Final) (Final) No Growth After 5 DaysCULTURE, ANAEROBE [id number] 08:44:00To start 15mins after 1st culture SECOND DRAW = 1 aerobic and 1 anerobic Culture LEFT HANDSpecimen: BloodCollected: 08/29/2018 16:30 Status: Final Last Updated: 09/04/2018 08:43 (1) To start 15mins after 1st culture SECOND DRAW = 1 aerobic and 1anerobic Culture LEFT HAND Culture Result (Final) (Final) No Growth After 5 DaysCULTURE, BLOOD 2018-09-04 08:44:00FIRST DRAW = 1 aerobic and 1 anerobic Culture LEFT HAND Specimen: BloodCollected: 08/29/2018 16:30 Status: Final Last Updated: 09/04/2018 08:43 (1) FIRST DRAW = 1 aerobic and 1 anerobic Culture LEFT HAND Culture Result (Final) (Final) No Growth After 5 [id number] 05:41:00 Test Item Value Reference Range Interpretation Comments Sodium (test code = 145 mmol/l 137-145 NA) Potassium (test 3.5 mmol/l 3.5-5.1 code = K) Chloride (test code 109 mmol/l 98-107 H = CL) Calcium (test code 8.7 mg/dl 8.5-10.1 = CALC) CO2 (test code = 30 mmol/l 21-32 CO2) Glucose (test code 98 mg/dl 74-106 = GLU) BUN (test code = 7.0 mg/dl 7.0-18.0 BUN) Creatinine (test 0.6 mg/dl 0.5-1.3 code = CREA) EGFR if >60 R[place] (test code mL/min/1.73m\\ = EGFRAA) S\\2 EGFR if Non- >60 Estimate d Glomerular [place] (test code mL/min/1.73m\\ Filtrat ion Rate (eGFR) = EGFRNA) S\\2 Reference Inter vals Decision Points for 18 years and older and average body ma ss: >= 60 Does not exc lude kidney disease. 30 - 59 Suggests modera te chronic kidney disease and indicat es the need for furthe r investigation including asses sment of proteinuria and cardiovascular factors. < 30 Usually in dicates a need for refe rral for assessment and management of c hronic kidney failure. CBC WITH AUTO [id number] 05:26:00 Test Item Value Reference Range Interpretation Comments WBC (test code = 7.72 10\\S\\3/ul 4.80-10.80 WBC) RBC (test code = 4.20 10\\S\\6/ul 4.20-5.40 RBC) Hemoglobin (test 12.2 gm/dl 12.0-14.0 code = HGB) Hematocrit (test 38.7 % 37.0-47.0 code = HCT) MCV (test code = 92.1 fL 81.0-99.0 MCV) MCH (test code = 29.0 pg 27.0-31.0 MCH) MCHC (test code = 31.5 gm/dl 33.0-37.0 L MCHC) RDW (test code = 12.2 % 11.5-14.5 RDWVC) Platelet (test code 261 10\\S\\3/ul 130-400 = PLT) MPV (test code = 10.5 fL 7.4-10.4 A "NOT MEASUR ED" MPV) RESULTS ARE DIS PLAYED WHEN THE INSTRU MENT HAS A SUPPRESSE D OR UNREPORTABLE RE SULT. THIS WILL MOST OFTEN HAPPEN WITH THE MPV WHEN THERE IS A N ABNORMAL PLATEL ET DISTRIBUTION DU E TO A CRITICAL LOW VA LUE OR PLATELET CLUMPI NG. THE RDW MAY BE SUPPRESSED IF T HERE ARE MULTIPLE PE AKS PRESENT ON THE RBC HISTOGRAM. IN THIS CASE, A MANUAL REVIEW OF THE SLIDE WI LL BE PERFORMED, AND RBC MORPHOLOGY WILL BE NOTED ON THE RE PORT. NE% (test code = 56.4 % 42.0-75.0 NE) LY% (test code = 31.6 % 13.0-42.0 LY) MO% (test code = 7.6 % 4.0-14.0 MO) EO% (test code = 3.5 % 1.0-5.0 EO) BA% (test code = 0.5 % 0.0-3.0 BA) IG% (test code = 0.4 % 0.0-0.4 IG%) CBC AUTO diffVANCOMYCIN, [id number] 17:10:00 Test Item Value Reference Range Interpretation Comments Vancomycin, Trough 8.7 ug/ml 15.0-20.0 L 09/01/2008 Change in (test code = Therapeutic Ran ge, for VANCT) Trough Level, h as been implemented per P&T committee. INT ERPRETATION GUIDE: CONSIDER SENSIT IVITY REPORT IF ALICIA IS = 1 THER APEUTIC RANGE IS 15-20 ug/ml IF ALICIA IS > OR = 2 CONSIDER ALTERN ATE THERAPY CULTURE, [id number] 07:22:00ER 5Specimen: WoundCollected: 08/28/2018 21:39 Status: Final Last Updated: 08/31/2018 07:22 (1) ER 5 Culture Result (Final) (Final) Moderate Staphylococcus aureus Isolate (Final) (C) (Final) Methicillin Resistant Staphylococcus aureus Ciprofloxacin >=8 R Clindamycin 0.25 S Daptomycin 0.5 S Erythromycin >=8 R Gentamicin <=0.5 S Levofloxacin 4 I Linezolid 2 S Moxifloxacin 1 S Oxacillin >=4 R Rifampicin <=0.5 S Tetracycline <=1 S Tigecycline <=0.12 S Trimeth/Sulfa 160 R Vancomycin 1 S Cefo xitin Sc (+/-) Positive + ICR (+/-) Negative -CBC WITH AUTO [id number] 07:04:00 Test Item Value Reference Range Interpretation Comments WBC (test code = 5.41 10\\S\\3/ul 4.80-10.80 WBC) RBC (test code = 3.89 10\\S\\6/ul 4.20-5.40 L RBC) Hemoglobin (test 11.4 gm/dl 12.0-14.0 L code = HGB) Hematocrit (test 35.0 % 37.0-47.0 L code = HCT) MCV (test code = 90.0 fL 81.0-99.0 MCV) MCH (test code = 29.3 pg 27.0-31.0 MCH) MCHC (test code = 32.6 gm/dl 33.0-37.0 L MCHC) RDW (test code = 12.0 % 11.5-14.5 RDWVC) Platelet (test 183 10\\S\\3/ul 130-400 code = PLT) MPV (test code = 11.2 fL 7.4-10.4 A "NOT MEASUR ED" MPV) RESULTS ARE DISPLAYED WHEN THE INSTRUMENT HAS A SUPPRESSED OR UNREPORTABLE RE SULT. THIS WILL MOST OFTEN HAPPEN WI TH THE MPV WHEN TH ERE IS AN ABNORMAL PLATELET DISTRIBUTION DU E TO A CRITICAL LOW VALUE OR PLATELET CLUMPING. THE RDW MAY BE SUPPRESS ED IF THERE ARE MULTI PLE PEAKS PRESENT O N THE RBC HISTOGRAM. IN THIS CASE, A CHULA BELTRAN REVIEW OF THE S LIDE WILL BE PERFORM ED, AND RBC MORPHOL OGY WILL BE NOTED O N THE REPORT. NE% (test code = 45.8 % 42.0-75.0 NE) LY% (test code = 39.7 % 13.0-42.0 LY) MO% (test code = 8.3 % 4.0-14.0 MO) EO% (test code = 5.2 % 1.0-5.0 H EO) BA% (test code = 0.6 % 0.0-3.0 BA) IG% (test code = 0.4 % 0.0-0.4 IG%) NRBC, Auto (test 0 /100WBC 0-2 code = NRBC_AUTO) Platelet Platelet No previous christiano ue Morphology (test clumping was reporte d. A code = PLTMORPH) value of Pl atelet clumping was en tered by [id number] on 08/31/2018 07:0 4 CBC AUTO [id number] 07:02:00 Test Item Value Reference Range Interpretation Comments Sodium (test code = 146 mmol/l 137-145 H NA) Potassium (test 3.7 mmol/l 3.5-5.1 code = K) Chloride (test code 109 mmol/l 98-107 H = CL) Calcium (test code 8.7 mg/dl 8.5-10.1 = CALC) CO2 (test code = 30 mmol/l 21-32 CO2) Glucose (test code 99 mg/dl 74-106 = GLU) BUN (test code = 6.0 mg/dl 7.0-18.0 L BUN) Creatinine (test 0.5 mg/dl 0.5-1.3 code = CREA) T Protein (test 6.1 gm/dl 6.4-8.2 L code = TP) Albumin (test code 2.7 gm/dl 3.4-5.0 L = ALB) A/G Ratio (test 0.8 % 1.1-2.2 L code = AGRAT) AST (SGOT) (test 13 U/L 15-37 L code = AST) ALT (SGPT) (test 18 U/L 13-61 code = ALT) Alkaline Phos (test 82 U/L 45-117 code = ALKP) Total Bilirubin 0.2 mg/dl 0.2-1.0 (test code = TBIL) Globulin (test code 3.4 gm/dl 2.3-3.5 = GLOBU) Calcium, Corrected 9.7 mg/dl 8.4-10.2 Various f ormulas exist (test code = for corrected s elliot CALCCORR) calcium results , each yielding differ ent values. This corrected resul t was based on the fo rmula: Corrected Calci um = SerumCalcium + [0.8 * ( 4 - SerumAlbu min)] EGFR if >60 [place] (test code mL/min/1.73m\\ = EGFRAA) S\\2 EGFR if Non- >60 Estimate d Glomerular [place] (test code mL/min/1.73m\\ Filtrat ion Rate (eGFR) = EGFRNA) S\\2 Reference Inter vals Decision Points for 18 years and older and average body ma ss: >= 60 Does not exc lude kidney disease. 30 - 59 Suggests modera te chronic kidney disease and indicat es the need for furthe r investigation including asses sment of proteinuria and cardiovascular factors. < 30 Usually in dicates a need for refe rral for assessment and management of c hronic kidney failure. [id number] 07:02:00 Test Item Value Reference Range Interpretation Comments Magnesium (test code = MG) 1.8 mg/dl 1.6-2.6 GLYCOSALATED [id number] 06:25:00 Test Item Value Reference Range Interpretation Comments Hemoglobin A1C (test 5.2 % 4.2-6.3 A code = GLYCO) Mean Plasma Glucose 108 mg/dl 90-180 WHEN ARIA T RESULTS FOR (test code = MPG) A1C EXCEED 14.0, THE LINEAR LIMIT OF THE INSTRUMENT, THE CALCULATED RESU LT FOR THE MEAN GLUCOS E IS NOT RELIABLE. [id number] 05:48:00 Test Item Value Reference Range Interpretation Comments Magnesium (test code = MG) 2.1 mg/dl 1.6-2.6 TSH (Ultra Sensitive)2018-08-30 05:48:00 Test Item Value Reference Range Interpretation Comments TSH (test code = TSH) 2.18 mIU/L 0.35-3.74 CORONARY [id number] 05:34:00 Test Item Value Reference Range Interpretation Comments Triglycerides (test 75 mg/dl 0-149 Trig. In terpretation code = TRIG) Guide: Nor mal: < 150 mg/dl Borderline High : 150 - 199 mg/dl High: 200 - 499 mg/dl Very High: >= 5 00 mg/dl Cholesterol (test code 135 mg/dl 0-200 = CHOL) HDL (test code = HDL) 29 mg/dl 35-86 L dLDL (test code = 99 mg/dl 0-99 Direct LDL DILDL) Intrepretations : Optimal: <100 mg/dl Suspect: 100 - 129 mg/dl Border line: 130 - 159 mg/dl High: 160 - 189 mg/dl Very High: >1 90 mg/dl Risk Factor (test code 4.7 0.0-4.4 H Risk Factor = RFACT) Men Women R isk Factor 3.4 3.3 1/ 2 Average 5.0 4.4 Average 9.6 7.1 2X Average 24.0 11.0 3X Average vLDL (test code = 15 mg/dl 20-40 L VLDL) [id number] 05:34:00 Test Item Value Reference Range Interpretation Comments Sodium (test code = 145 mmol/l 137-145 NA) Potassium (test 3.9 mmol/l 3.5-5.1 code = K) Chloride (test code 110 mmol/l 98-107 H = CL) Calcium (test code 8.5 mg/dl 8.5-10.1 = CALC) CO2 (test code = 29 mmol/l 21-32 CO2) Glucose (test code 112 mg/dl 74-106 H = GLU) BUN (test code = 12.0 mg/dl 7.0-18.0 BUN) Creatinine (test 0.4 mg/dl 0.5-1.3 L code = CREA) T Protein (test 6.4 gm/dl 6.4-8.2 code = TP) Albumin (test code 2.7 gm/dl 3.4-5.0 L = ALB) A/G Ratio (test 0.7 % 1.1-2.2 L code = AGRAT) AST (SGOT) (test 13 U/L 15-37 L code = AST) ALT (SGPT) (test 17 U/L 13-61 code = ALT) Alkaline Phos (test 85 U/L 45-117 code = ALKP) Total Bilirubin 0.3 mg/dl 0.2-1.0 (test code = TBIL) Globulin (test code 3.7 gm/dl 2.3-3.5 H = GLOBU) Calcium, Corrected 9.5 mg/dl 8.4-10.2 Various f ormulas exist (test code = for corrected s elliot CALCCORR) calcium results , each yielding differ ent values. This corrected resul t was based on the fo rmula: Corrected Calci um = SerumCalcium + [0.8 * ( 4 - SerumAlbu min)] EGFR if >60 [place] (test code mL/min/1.73m\\ = EGFRAA) S\\2 EGFR if Non- >60 Estimate d Glomerular [place] (test code mL/min/1.73m\\ Filtrat ion Rate (eGFR) = EGFRNA) S\\2 Reference Inter vals Decision Points for 18 years and older and average body ma ss: >= 60 Does not exc lude kidney disease. 30 - 59 Suggests modera te chronic kidney disease and indicat es the need for furthe r investigation including asses sment of proteinuria and cardiovascular factors. < 30 Usually in dicates a need for refe rral for assessment and management of c hronic kidney failure. CBC WITH AUTO [id number] 04:58:00 Test Item Value Reference Range Interpretation Comments WBC (test code = 4.58 10\\S\\3/ul 4.80-10.80 L WBC) RBC (test code = 3.91 10\\S\\6/ul 4.20-5.40 L RBC) Hemoglobin (test 11.4 gm/dl 12.0-14.0 L code = HGB) Hematocrit (test 35.0 % 37.0-47.0 L code = HCT) MCV (test code = 89.5 fL 81.0-99.0 MCV) MCH (test code = 29.2 pg 27.0-31.0 MCH) MCHC (test code = 32.6 gm/dl 33.0-37.0 L MCHC) RDW (test code = 11.9 % 11.5-14.5 RDWVC) Platelet (test code 199 10\\S\\3/ul 130-400 = PLT) MPV (test code = 11.4 fL 7.4-10.4 A "NOT MEASUR ED" MPV) RESULTS ARE DIS PLAYED WHEN THE INSTRU MENT HAS A SUPPRESSE D OR UNREPORTABLE RE SULT. THIS WILL MOST OFTEN HAPPEN WITH THE MPV WHEN THERE IS A N ABNORMAL PLATEL ET DISTRIBUTION DU E TO A CRITICAL LOW VA LUE OR PLATELET CLUMPI NG. THE RDW MAY BE SUPPRESSED IF T HERE ARE MULTIPLE PE AKS PRESENT ON THE RBC HISTOGRAM. IN THIS CASE, A MANUAL REVIEW OF THE SLIDE WI LL BE PERFORMED, AND RBC MORPHOLOGY WILL BE NOTED ON THE RE PORT. NE% (test code = 49.8 % 42.0-75.0 NE) LY% (test code = 33.8 % 13.0-42.0 LY) MO% (test code = 10.7 % 4.0-14.0 MO) EO% (test code = 4.8 % 1.0-5.0 EO) BA% (test code = 0.7 % 0.0-3.0 BA) IG% (test code = 0.2 % 0.0-0.4 IG%) CBC AUTO diffUS [id number] 06:32:57Procedure: US THORAXOrder Date: 08/28/2018 10:25 PMOrdering Provider: KALLI Steinerinical Indication: Painful area of concern within the anterior left chest.Comparison: NoneTechnique: Multiple ultrasound images of the palpable area of concern in theleft chest was obtained.Findings:Diffuse subcutaneous edema with amorphous hypoechoic structure inferior to theleft clavicle. No well-defined abscess. Findings are favored to represent aphlegmon. Recommend followup after treatment.Impression:Extensive subcutaneous edema with amorphous subcutaneous fluid seen within theclinical area of concern just inferior to the left clavicle concerning forphlegmon and cellulitis. No definite drainable well-defined fluid collection.This final report was electronically signed by Dr Shwetha Ribeiro MD 08/29/20186:26 AMDictated By: SHWETHA RIBEIRODate: 08/29/2018 06:26CT CHEST W/O [id number] 23:27:33abscess right upper chest h/o port cath removed 12 yrs agoEXAM:CT Chest Without ContrastEXAM DATE/TIME:08/28/2018 9:51 PMCLINICAL HISTORY:58 years old, female;Other: Left shoulder pain; Prior surgery; Surgery date:6+ months; Surgery type: Port a cath; PatientHX: Large mass/abscess to leftupper chest/should area.TECHNIQUE:Imaging protocol: Axial computed tomography images of the chest withoutintravenous contrast. Coronal and sagittal reformatted images werecreated andreviewed.Radiation optimization: All CT scans at this facility use at least one ofthese dose optimization techniques: automated exposure control; mA and/or kVadjustment per patient size (includes targeted exams where dose is matched toclinical indication); or iterative reconstruction.COMPARISON:No relevant prior studies available.FINDINGS:Lungs: No focal infiltrate. No masses.Pleural space: No pneumothorax. No pleural effusion.Heart: No cardiomegaly. No pericardial effusion.Aorta: Unremarkable. No aortic aneurysm.Lymph nodes: Unremarkable. No enlarged lymph nodes.Bones/joints: Chronic degenerative spinal changes without acute fracture ordislocation.Soft tissues: Left upper chest / prepectoral subcutaneous fat stranding andskin thickening consistent with cellulitis vs hematoma. No defined collectionto suggest abscess within limits of noncontrast exam.Upper abdomen: Spleen enlarged at 13.7 cm. Benign dystrophic appearing 10 mmcalcification centrally in the spleen.IMPRESSION:Left upper chest / prepectoral subcutaneous fat stranding and skin thickeningconsistent with cellulitis vs hematoma. No defined collection to suggestabscess within limits of noncontrast exam.No pneumonia, lung mass, or edema.Splenomegaly.This Final report was electronically signed by Susanna Whitlock MD on 11:27 PM CDT.Dictated By: JOHN WHITLOCKEDDate: 08/28/2018 23:27STAT LAB CHEM [id number] 21:33:00 Test Item Value Reference Range Interpretation Comments Sodium (test code = NA) 136 mmol/l 138-146 L Potassium (test code = K) 3.9 mmol/l 3.5-4.9 Chloride (test code = CL) 99 mmol/l 98-109 IONIZED CALCIUM (test code = ICA) 1.10 CO2 (test code = CO2) 29 mmol/l 24-29 Glucose (test code = GLU) 121 mg/dl 70-105 H BUN (test code = BUN) 31 mg/dl 6-17 H Creatinine (test code = CREA) 0.6 mg/dl 0.6-1.3 STAT LAB CBC WITH AUTO [id number] 21:33:00 Test Item Value Reference Range Interpretation Comments WBC (test code = WBC) 10.37 10\\S\\3/ul 4.80-10.80 RBC (test code = RBC) 4.33 10\\S\\6/ul 4.20-5.40 Hemoglobin (test code = HGB) 12.4 gm/dl 12.0-14.0 Hematocrit (test code = HCT) 39.3 % 37.0-47.0 MCV (test code = MCV) 90.8 fL 81.0-99.0 MCH (test code = MCH) 28.6 pg 27.0-31.0 MCHC (test code = MCHC) 31.6 gm/dl 33.0-37.0 L Platelet (test code = PLT) 226 10\\S\\3/ul 130-400 RDW (test code = RDWVC) 12.0 % 11.5-14.5 MPV (test code = MPV) 11.4 fL 7.4-10.4 A NE% (test code = NE) 68.5 % 42.0-75.0 LY% (test code = LY) 20.0 % 13.0-42.0 MO% (test code = MO) 8.4 % 4.0-14.0 EO% (test code = EO) 2.2 % 1.0-3.0 BA% (test code = BA) 0.7 % 1.0-3.0 L IG% (test code = IG%) 0.2 % 0.0-0.4 STAT LAB CBC WITH AUTO [id number] 13:15:00 Test Item Value Reference Range Interpretation Comments WBC (test code = WBC) 12.14 10\\S\\3/ul 4.80-10.80 H RBC (test code = RBC) 4.54 10\\S\\6/ul 4.20-5.40 Hemoglobin (test code = HGB) 13.0 gm/dl 12.0-14.0 Hematocrit (test code = HCT) 40.8 % 37.0-47.0 MCV (test code = MCV) 89.9 fL 81.0-99.0 MCH (test code = MCH) 28.6 pg 27.0-31.0 MCHC (test code = MCHC) 31.9 gm/dl 33.0-37.0 L Platelet (test code = PLT) 176 10\\S\\3/ul 130-400 RDW (test code = RDWVC) 12.3 % 11.5-14.5 MPV (test code = MPV) 11.0 fL 7.4-10.4 A NE% (test code = NE) 72.6 % 42.0-75.0 LY% (test code = LY) 18.5 % 13.0-42.0 MO% (test code = MO) 7.2 % 4.0-14.0 EO% (test code = EO) 1.0 % 1.0-3.0 BA% (test code = BA) 0.5 % 1.0-3.0 L IG% (test code = IG%) 0.2 % 0.0-0.4
[2021-05-29] MEDS ORDERED: MORPHINE 4 MG/ML SYR ONE (22:48)
[2021-05-29] MEDS ORDERED: ONDANSETRON 4 MG/2 ML VIAL ONE (22:48)
[2021-05-29] MEDS ORDERED: MORPHINE 2 MG/ML SYR ONE (22:50)
[2021-05-30] MEDS ORDERED: ONDANSETRON 4 MG (ODT) TAB ONE (00:21)
[2021-05-30 00:23] LABS: Absolute Lymphocytes (CBC) 2.8 K/uL (0.7-4.9); Lymphocytes % 25.7 % (15.3-44.8); MPV 9.4 fL (7.6-11.3); RBC Red Blood Cell Count 4.48 M/uL (3.86-4.86)
[2021-05-30 00:27] LABS: Protime INR 1.08
[2021-05-30 00:40] LABS: Blood Morphology Comment NOT SEEN (NOT SEEN); Platelet Estimate ADEQ; White Blood Cell Scan OK (OK)
[2021-05-30 00:42] LABS: ALT/SGPT 23 U/L (12-78); AST/SGOT 8 U/L (15-37); Albumin 3.4 g/dL (3.4-5.0); Alkaline Phosphatase 67 U/L (45-117); BUN Blood Urea Nitrogen 10 mg/dL (7-18); Bicarbonate 28 mmol/L (21-32); Bilirubin Total 0.5 mg/dL (0.2-1.0); Glucose Level 93 mg/dL (74-106); Potassium 4.2 mmol/L (3.5-5.1); Sodium Level 141 mmol/L (136-145)
--- NOTE | 2021-05-30 03:27 | EDPHYS ---
Physician Documentation [facility] Name: Ariadna Garcia Age: 60 yrs Sex: Female : 1960 Arrival Date: 05/29/2021 Time: 20:37 Bed 5 Private MD: ED Physician Lacho Kiser HPI: 05/29 22:24 This 60 yrs old Female presents to ER via Wheelchair with complaints of Numbness Of mh7 Hand, PAIN ON THE RIGHT SIDE. 22:24 The patient or guardian complains of an injury, pain, that is acute. right shoulder. mh7 Context: The problem was sustained at a relative's home, resulted from lifting or carrying, a heavy object, moving furniture, The patient experiences decreased range of motion, when rotates arm, The patient reports no obvious deformity. Onset: The symptoms/episode began/occurred 2 day(s) ago. Modifying factors: the symptoms are alleviated by nothing. The symptoms are aggravated by movement, rotation of arm. Associated signs and symptoms: Pertinent positives: neck pain, Numbness in right hand tingling, , Pertinent negatives: abdominal pain, chest pain, diaphoresis, dyspnea, shortness of breath. Severity of symptoms: At their worst the symptoms were moderate, yesterday, in the emergency department the symptoms are unchanged. Treatment prior to arrival includes: no previous treatment. Historical: - Allergies: 22:28 PENICILLINS; lg3 22:28 Sulfa (Sulfonamide Antibiotics); lg3 22:29 iodine contrast; lg3 - Home Meds: 22:29 Tramadol Oral [Active]; Triazolam Oral [Active]; lg3 - PMHx: 22:29 reflex sympathetic dystrophy; Fibromyalgia; lg3 - PSHx: 22:29 section; left shoulder tumor removal; bilateral knee replacement; lg3 Cholecystectomy; - Immunization history:: Client reports having NOT received the Covid vaccine. - Social history:: Smoking status: Patient reports the use of cigarette tobacco products, denies chronic smoking, but will smoke occasionally, Patient/guardian denies using alcohol, street drugs. ROS: 22:24 Constitutional: Negative for fever, chills, and weight loss, Eyes: Negative for injury, mh7 pain, redness, and discharge, ENT: Negative for injury, pain, and discharge, Cardiovascular: Negative for chest pain, palpitations, and edema, Respiratory: Negative for shortness of breath, cough, wheezing, and pleuritic chest pain, Abdomen/GI: Negative for abdominal pain, nausea, vomiting, diarrhea, and constipation, Back: Negative for injury and pain, : Negative for injury, bleeding, discharge, and swelling, Skin: Negative for injury, rash, and discoloration, Psych: Negative for depression, anxiety, suicide ideation, homicidal ideation, and hallucinations, Allergy/Immunology: Negative for hives, rash, and allergies, Endocrine: Negative for neck swelling, polydipsia, polyuria, polyphagia, and marked weight changes, Hematologic/Lymphatic: Negative for swollen nodes, abnormal bleeding, and unusual bruising. Exam: 22:24 Head/Face: Normocephalic, atraumatic. Eyes: Pupils equal round and reactive to light, mh7 extra-ocular motions intact. Lids and lashes normal. Conjunctiva and sclera are non-icteric and not injected. Cornea within normal limits. Periorbital areas with no swelling, redness, or edema. Chest/axilla: Normal chest wall appearance and motion. Nontender with no deformity. No lesions are appreciated. Cardiovascular: Regular rate and rhythm with a normal S1 and S2. No gallops, murmurs, or rubs. Normal PMI, no JVD. No pulse deficits. Respiratory: Lungs have equal breath sounds bilaterally, clear to auscultation and percussion. No rales, rhonchi or wheezes noted. No increased work of breathing, no retractions or nasal flaring. Abdomen/GI: Soft, non-tender, with normal bowel sounds. No distension or tympany. No guarding or rebound. No evidence of tenderness throughout. Back: No spinal tenderness. No costovertebral tenderness. Full range of motion. Skin: Warm, dry with normal turgor. Normal color with no rashes, no lesions, and no evidence of cellulitis. 22:24 Neuro: Awake and alert, GCS 15, oriented to person, place, time, and situation. Cranial nerves II-XII grossly intact. Motor strength 5/5 in all extremities. Sensory grossly intact. Cerebellar exam normal. Normal gait. Psych: Awake, alert, with orientation to person, place and time. Behavior, mood, and affect are within normal limits. 22:24 Constitutional: The patient appears in no acute distress, alert, awake, uncomfortable. 22:24 Neck: External neck: is normal, tenderness, that is moderate, of the right mid cervical area and right trapezius, C-spine: appears grossly normal, no vertebral tenderness, no crepitus, Thyroid: appears normal, Trachea: is midline with no obvious abnormalities, ROM/movement: pain, that is moderate, with rotation to the right, limited range of motion, that is mild, when rotating to the right, Meningeal signs: are not present, nuchal rigidity, is not appreciated, Lymph nodes: no appreciated lymphadenopathy. 22:24 Musculoskeletal/extremity: Extremities: noted in the right shoulder: decreased ROM, pain, tenderness, ROM: limited active range of motion due to pain, in the right shoulder, limited passive range of motion due to pain, in the right shoulder, Circulation is intact in all extremities. Sensation intact. Compartment Syndrome exam of affected extremity: Joints: the right shoulder displays painful range of motion, tenderness, Weight bearing: able to fully bear weight, without difficulty, Tendon exam: specific tendon testing normal through active and passive range of motion Vital Signs: 22:28 BP 143 / 95; Pulse 71; Resp 17 S; Pulse Ox 98% on R/A; lg3 04/20 00:46 BP 126 / 69; Pulse 64; Resp 18; Pulse Ox 98% on R/A; oe 02:13 BP 128 / 67; Pulse 71; Resp 20 S; Pulse Ox 96% on R/A; as6 MDM: 02:00 Differential diagnosis: Anterior dislocation without fracture, Posterior dislocation mh7 without fracture, DJD, tendonitis, cervical radiculopathy. Data reviewed: vital signs, nurses notes, radiologic studies, CT scan, plain films. Data interpreted: Pulse oximetry: on room air is 98 %. Interpretation: normal. Counseling: I had a detailed discussion with the patient and/or guardian regarding: the historical points, exam findings, and any diagnostic results supporting the discharge/admit diagnosis, radiology results, the need for outpatient follow up, a orthopedic surgeon, to return to the emergency department if symptoms worsen or persist or if there are any questions or concerns that arise at home. Response to treatment: the patient's symptoms have markedly improved after treatment. 02:04 Patient medically screened. 7 05/29 22:13 Order name: CBC with Diff mh7 05/29 22:13 Order name: CMP [facility] 05/29 22:13 Order name: Protime (+inr) [facility] 05/29 22:13 Order name: Ptt, Activated [facility] 05/30 00:28 Order name: CBC Smear Scan EDMS 05/29 22:13 Order name: Labs collected and sent; Complete Time: 00:19 [facility] 05/29 22:22 Order name: Shoulder Right (2 View) XRAY [facility] 05/29 22:22 Order name: CT C Spine [facility] 05/29 23:00 Order name: Sling; Complete Time: 00:19 [facility] Administered Medications: 05/29 23:33 Drug: morphine 5 mg Route: IM; Site: right gluteus; lg3 23:33 Follow up: Response: No adverse reaction; RASS: Alert and Calm (0) lg3 05/30 00:19 Drug: Zofran (Ondansetron) 4 mg Route: PO; as6 00:20 Follow up: Response: No adverse reaction; RASS: Alert and Calm (0) lg3 Disposition Summary: 05/30/21 02:04 Discharge Ordered Location: Home [facility] Problem: new [facility] Symptoms: have improved [facility] Condition: Stable [facility] Diagnosis - Strain, left shoulder [facility] - Other spondylosis with radiculopathy, cervical region [facility] Followup: [facility] - With: Private Physician - When: 1 - 2 days - Reason: Worsening of condition, Recheck today's complaints, Continuance of care, Re-evaluation by your physician Followup: [facility] - With: Charlie Santiago MD - When: 2 - 3 days - Reason: Worsening of condition, Recheck today's complaints Discharge Instructions: - Discharge Summary Sheet [facility] - Muscle Strain, [id number] [facility] - Cervical Radiculopathy, [id number] [facility] - Radicular Pain [facility] Forms: - Medication Reconciliation Form [facility] - Thank You Letter [facility] - Antibiotic Education [facility] - Prescription Opioid Use [facility] Prescriptions: - ketorolac 10 mg Oral tablet - take 1 tablet by ORAL route every 6 hours As needed not to exceed 40 mg in 7 24hrs; 12 tablet; Refills: 0, Product Selection Permitted - Cyclobenzaprine 5 mg Oral Tablet - take 1 tablet by ORAL route 3 times per day As needed; 15 tablet; Refills: 0, 7 Product Selection Permitted Signatures: Dispatcher [employer] Zenobia Payne RN RN lg3 Lacho Kiser MD MD mh7 Robles Capps RN RN as6
--- NOTE | 2021-05-30 03:27 | ER ---
Nurse's Notes [facility] Name: Ariadna Garcia Age: 60 yrs Sex: Female : 1960 Arrival Date: 05/29/2021 Time: 20:37 Bed 5 Private MD: Diagnosis: Strain, left shoulder;Other spondylosis with radiculopathy, cervical region Presentation: 05/29 22:01 Chief complaint: Patient states: "I was helping my sister move her couch and I heard a as6 pop in my right shoulder. It hurts a lot and I can't move it. It's also numb". Coronavirus screen: At this time, the client does not indicate any symptoms associated with coronavirus-19. Ebola Screen: No symptoms or risks identified at this time. Risk Assessment: Do you want to hurt yourself or someone else? Patient reports no desire to harm self or others. Onset of symptoms was May 28, 2021. 22:01 Method Of Arrival: Wheelchair as6 22:01 Acuity: ALYSSIA 3 as6 22:28 Initial Sepsis Screen: Does the patient meet any 2 criteria? No. Patient's initial lg3 sepsis screen is negative. Does the patient have a suspected source of infection? No. Patient's initial sepsis screen is negative. Historical: - Allergies: 22:28 PENICILLINS; lg3 22:28 Sulfa (Sulfonamide Antibiotics); lg3 22:29 iodine contrast; lg3 - Home Meds: 22:29 Tramadol Oral [Active]; Triazolam Oral [Active]; lg3 - PMHx: 22:29 reflex sympathetic dystrophy; Fibromyalgia; lg3 - PSHx: 22:29 section; left shoulder tumor removal; bilateral knee replacement; lg3 Cholecystectomy; - Immunization history:: Client reports having NOT received the Covid vaccine. - Social history:: Smoking status: Patient reports the use of cigarette tobacco products, denies chronic smoking, but will smoke occasionally, Patient/guardian denies using alcohol, street drugs. Screenin:11 Abuse screen: Denies threats or abuse. Denies injuries from another. Nutritional lg3 screening: No deficits noted. Tuberculosis screening: No symptoms or risk factors identified. Fall Risk None identified. Assessment: 22:11 General: Appears in no apparent distress. uncomfortable, Behavior is calm, cooperative. lg3 Pain: Complains of pain in right shoulder Pain radiates to right arm. Neuro: No deficits noted. Level of Consciousness is awake, alert, obeys commands, Oriented to person, place, time, situation. Cardiovascular: No deficits noted. Denies chest pain, shortness of breath. Respiratory: No deficits noted. Airway is patent Trachea midline Respiratory effort is even, unlabored, Respiratory pattern is regular, symmetrical. GI: No deficits noted. No signs and/or symptoms were reported involving the gastrointestinal system. : No deficits noted. No signs and/or symptoms were reported regarding the genitourinary system. EENT: No deficits noted. No signs and/or symptoms were reported regarding the EENT system. Derm: No deficits noted. No signs and/or symptoms reported regarding the dermatologic system. Reports numbness in all fingers on right hand. Musculoskeletal: Circulation, motion, and sensation intact. Capillary refill < 3 seconds, Range of motion: intact in all extremities. 05/30 00:22 Reassessment: Patient appears in no apparent distress at this time. No changes from lg3 previously documented assessment. Patient and/or family updated on plan of care and expected duration. Pain level reassessed. Patient is alert, oriented x 3, equal unlabored respirations, skin warm/dry/pink. Patient states symptoms have improved. 01:42 Reassessment: Patient appears in no apparent distress at this time. Patient states lg3 feeling better. Patient states symptoms have improved. Vital Signs: 05/29 22:28 BP 143 / 95; Pulse 71; Resp 17 S; Pulse Ox 98% on R/A; lg3 05/30 00:46 BP 126 / 69; Pulse 64; Resp 18; Pulse Ox 98% on R/A; oe 02:13 BP 128 / 67; Pulse 71; Resp 20 S; Pulse Ox 96% on R/A; as6 ED Course: 05/29 20:37 Patient arrived in ED. ja2 21:26 Lacho Kiser MD is Attending Physician. mh7 21:38 Robles Capps, VALE is Primary Nurse. as6 22:04 Triage completed. as6 22:04 Arm band placed on. as6 22:11 Patient has correct armband on for positive identification. Placed in gown. Bed in low lg3 position. Call light in reach. Side rails up X 1. Door closed. Noise minimized. Warm blanket given. 23:04 Shoulder Right (2 View) XRAY In Process Unspecified. EDMS 23:26 CT C Spine In Process Unspecified. EDMS 05/30 02:02 Charlie Santiago MD is Referral Physician. mh7 02:14 No provider procedures requiring assistance completed. Patient did not have IV access as6 during this emergency room visit. Administered Medications: 05/29 23:33 Drug: morphine 5 mg Route: IM; Site: right gluteus; lg3 23:33 Follow up: Response: No adverse reaction; RASS: Alert and Calm (0) lg3 05/30 00:19 Drug: Zofran (Ondansetron) 4 mg Route: PO; as6 00:20 Follow up: Response: No adverse reaction; RASS: Alert and Calm (0) lg3 Outcome: 02:04 Discharge ordered by . mh7 02:14 Discharged to home via wheelchair. as6 02:14 Condition: stable 02:14 Discharge instructions given to patient, Instructed on discharge instructions, follow up and referral plans. medication usage, Demonstrated understanding of instructions, follow-up care, medications, Prescriptions given X 2. 02:17 Patient left the ED. as6 Signatures: Dispatcher [employer] EDME Yonas Weston Lacie, RN RN lg3 Lacho Kiser MD MD 7 Stefani Doe Ashby, VALE RN as6 Corrections: (The following items were deleted from the chart) 05/29 22:11 22:01 Chief complaint: Patient states: "I was helping my sister move her couch and I lg3 heard a pop in my left shoulder. It hurts a lot and I can't move it. It's also numb" as6
[2021-05-30 08:03] VITALS: BP 128/67; O2SAT 96
--- NOTE | 2021-05-30 12:37 | RAD REPORT ---
EXAM DESCRIPTION: CT - C Spine Wo Con - 05/30/2021 6:47 am CLINICAL HISTORY: The patient is 60 years old and is Female; Cervical radiculopathy, no red flags TECHNIQUE: Axial computed tomography images of the cervical spine without intravenous contrast. Sa gittal and coronal reformatted images were created and reviewed. This CT exam was performed using o ne or more of the following dose reduction techniques: automated exposure control, adjustment of th e mA and/or kV according to patient size, and/or use of iterative reconstruction technique. COMPARISON: No relevant prior studies available. FINDINGS: LIMITATIONS: Suboptimal study secondary to artifact related to patient body habitus. VERTEBRAE: Straightening of the normal cervical curvature is present. The vertebral body heigh ts and alignment are relatively maintained. DISCS/SPINAL CANAL/NEURAL FORAMINA: Intervertebral disc space narrowing with anterior osteophyte formation and facet arthropathy is noted throughout the cervical spine. Multilevel neural foraminal narrowing secondary to posterior disc osteophyte complexes present. There is no significant canal shelyb nosis. SOFT TISSUES: The soft tissues are normal. SINUSES: A left maxillary sinus mucus retention cyst is present. IMPRESSION: 1. Straightening of the normal cervical curvature is present. Findings may be second javon to patient position versus muscle spasm. 2. Spondylosis of the cervical spine. Electronically signed by: Chiara Locke MD 05/29/2021 11:48 PM CDT Due to temporary technical issues with the PACS/Fluency reporting system, reports are being signed by the in house radiologist without review as a courtesy to ensure prompt reporting. The interpreting r adiologist is fully responsible for the content of the report.
--- NOTE | 2021-05-30 12:39 | RAD REPORT ---
EXAM DESCRIPTION: RAD - Shoulder Right 2 View - 05/29/2021 11:02 pm CLINICAL HISTORY: 60-year-old female with pain. TECHNIQUE: Limited two views of the RIGHT shoulder were obtained in AP internal and external rotatio n positioning. COMPARISON: None. FINDINGS: There is no fracture or dislocation. Degenerative change of the acromioclavicular and deshawn ohumeral joint. The joint spaces are preserved. No soft tissue abnormalities are seen. IMPRESSION: No acute radiographic abnormality. Electronically signed by: Nicolle Laws MD 05/30/2021 12:53 AM CDT Due to temporary technical issues with the PACS/Fluency reporting system, reports are being signed by the in house radiologist without review as a courtesy to ensure prompt reporting. The interpreting r adiologist is fully responsible for the content of the report.
== END 2021-05-30 02:17 | disposition home or self-care (01) ==
LOC: ER 20:31
DX: S46.911A Strain of unspecified muscle, fascia and tendon at shoulder and upper arm level, right arm, initial encounter (principal); M47.892 Other spondylosis, cervical region; X50.0XXA Overexertion from strenuous movement or load, initial encounter; Y93.89 Activity, other specified; Y92.89 Other specified places as the place of occurrence of the external cause; Z88.0 Allergy status to penicillin; Z88.2 Allergy status to sulfonamides; Z91.041 Radiographic dye allergy status; F17.210 Nicotine dependence, cigarettes, uncomplicated
CPT/HCPCS: 85025; 36415 ×2; 85610; 85730; 80053; 72125; 73030; 96372; 99283; J2270; J2405